=== PATIENT | female | born 1960 | race Hispanic/Latino ===

== ENCOUNTER 2019-08-13 12:00 | Inpatient (IN) | payer OTHER ==
[~2019-08-13] VITALS: Ht 158.8 cm; Wt 78.5 kg
[2019-08-13 12:12] LABS: BASOPHILS % (AUTO) 0.3 % (0.0-5.0); EOSINOPHILS % (AUTO) 3.2 % (0.0-8.0); HEMATOCRIT 41.8 % (36-48); LYMPHOCYTES % (AUTO) 29.9 % (21.0-51.0); MEAN CORPUSCULAR HEMOGLOBIN 28.3 pg (27.0-33.0); MEAN CORPUSCULAR HGB CONC 33.5 g/dL (32.0-36.0); MEAN CORPUSCULAR VOLUME 84.4 fL (79-99); MONOCYTES % (AUTO) 8.3 % (3.0-13.0); NEUTROPHILS % (AUTO) 58.1 % (40.0-77.0); PLATELET COUNT (AUTO) 192 K/uL (130-400); RED BLOOD CELL COUNT(AUTO) 4.95 MIL/uL (4.00-5.50); RED CELL DISTRIBUTION WIDTH 12.4 % (11.0-15.5); WHITE BLOOD COUNT (AUTO) 6.2 K/uL (4.8-10.8)
[2019-08-13 12:22] LABS: INR 0.9 (0.85-1.15); PARTIAL THROMBOPLASTIN TIME 27.4 SEC (26.3-35.5); PROTHROMBIN TIME 9.5 SEC (9.6-11.6)
[2019-08-13 12:25] LABS: ALBUMIN 3.9 g/dL (3.5-5.0); BILIRUBIN,TOTAL 0.3 mg/dL (0.2-1.0); CREATININE 0.7 mg/dL (0.5-1.5); POTASSIUM 4.2 mmol/L (3.5-5.1); TOTAL PROTEIN, SERUM 7.7 g/dL (6.0-8.3)
[2019-08-13 12:31] LABS: HEMOGLOBIN A1C 5.3 % (4.0-6.0)
[2019-08-13 12:41] VITALS: BP 111/61
[2019-08-13] MEDS ORDERED: FLUO10TA3 PO (12:44)
[2019-08-13] MEDS ORDERED: TURM500C9 PO (12:48)
[2019-08-13] MEDS ORDERED: GARL1TAB2 PO (12:48)
[2019-08-13] MEDS ORDERED: VITA1CAP85 PO (12:48)
[2019-08-13] MEDS ORDERED: ASCO500T9 PO (12:48)
[2019-08-13] MEDS ORDERED: CEFUROXIME SODIUM 1.5 GM VIAL IVP SCH (14:00)
[2019-08-14] VITALS (23 sets, daily range): BP systolic 100–137; BP diastolic 41–70
[2019-08-14] MEDS ORDERED: SODIUM CHLORIDE 0.9% 1000ML 1,000 ML IV ONE (11:33)
[2019-08-14] MEDS: CEFUROXIME SODIUM 1.5 GM VIAL ONE ×2 (11:33→15:40)
[2019-08-14] MEDS ORDERED: NEOSTIGMINE 5MG/5ML SYR IV ONE (15:23)
[2019-08-14] MEDS ORDERED: LIDOCAINE PF 2% 5ML ABBOJECT ONE (15:23)
[2019-08-14] MEDS ORDERED: MIDAZOLAM HCL 1 MG/ML 2ML VIAL ONE (15:23)
[2019-08-14] MEDS ORDERED: DEXAMETHASONE SOD PHOSPHATE 10MG/ML 1ML VIAL ONE (15:23)
[2019-08-14] MEDS ORDERED: ONDANSETRON HCL 4 MG/2 ML VIAL ONE (15:23)
[2019-08-14] MEDS ORDERED: FENTANYL CITRATE PF 50 MCG/1 ML 2ML VIAL ONE ×3 (15:23→17:27)
[2019-08-14] MEDS ORDERED: SUCCINYLCHOLINE 200MG/10ML SYR ONE (15:23)
[2019-08-14] MEDS ORDERED: PROPOFOL 10 MG/ML 20ML VIAL IV ONE (15:23)
[2019-08-14] MEDS ORDERED: GLYCOPYRROLATE 1 MG/5 ML SYRINGE ONE (15:23)
[2019-08-14] MEDS ORDERED: ROCURONIUM 10MG/1ML SYR 10 MG/ML ML ONE ×2 (15:24→16:26)
[2019-08-14] MEDS ORDERED: ROPIVACAINE 0.2% 2MG/ML 100ML VIAL IJ ONE (16:01)
[2019-08-14] MEDS ORDERED: ROPIVACAINE 0.5% 5MG/ML 30ML IJ ONE (16:27)
[2019-08-14] MEDS ORDERED: CEFAZOLIN SODIUM 1 GM VIAL ONE (16:45)
[2019-08-14] MEDS ORDERED: TRAMADOL HCL 50 MG TABLET PO PRN (17:00)
[2019-08-14] MEDS ORDERED: MEPERIDINE-PF 25 MG/ML SYG ONE (17:59)
[2019-08-14] MEDS: Q-PUMP 1 EACH IRRIG SCH (19:35)
[2019-08-14] MEDS ORDERED: KETOROLAC TROMETHAMINE 30MG/ML ONE (23:02)
[2019-08-15] MEDS: CEFAZOLIN SODIUM 1 GM VIAL IVP SCH ×3 (01:39→16:44)
[2019-08-15] MEDS: TRAMADOL HCL 50 MG TABLET PO PRN ×3 (01:49→16:44)
[2019-08-15 04:29] LABS: HEMATOCRIT 38.5 % (36-48); MEAN CORPUSCULAR HGB CONC 33.5 g/dL (32.0-36.0); MEAN CORPUSCULAR VOLUME 83.7 fL (79-99); PLATELET COUNT (AUTO) 181 K/uL (130-400); RED CELL DISTRIBUTION WIDTH 12.4 % (11.0-15.5); WHITE BLOOD COUNT (AUTO) 13.3 K/uL (4.8-10.8)
[2019-08-15 04:44] LABS: CREATININE 0.6 mg/dL (0.5-1.5); POTASSIUM 3.7 mmol/L (3.5-5.1)
[2019-08-15] MEDS: KETOROLAC TROMETHAMINE 30MG/ML IV PRN ×3 (05:04→20:07)
[2019-08-15 07:53] VITALS: BP 97/61
[2019-08-15] MEDS: VITAMIN B COMPLEX 1 CAPSULE PO SCH (08:53)
[2019-08-15] MEDS: ASCORBIC ACID 500 MG TAB PO SCH (08:53)
[2019-08-15 12:07] VITALS: BP 119/72
--- NOTE | 2019-08-15 14:26 | NUR ---
DC PLAN VISITED WITH PATIENT. PATIENT LIVES WITH DAUGHTER. INDEPENDENT ABLE TO PERFORM ADL'S. PATIENT HAS NO SERVICES OR DME'S. FEELS SAFE TO RETURN HOME. Addendum: 08/15/19 at 1430 by LAURA GRAFF RN CM Amended: Links added.
[2019-08-15 16:13] VITALS: BP 101/60
[2019-08-15] MEDS: FLUOXETINE HCL 10 MG CAPSULE PO SCH (16:44)
[2019-08-15] MEDS: Q-PUMP 1 EACH IRRIG SCH (17:00)
[2019-08-15 19:25] VITALS: BP 110/65
[2019-08-15 23:44] VITALS: BP 104/66
[2019-08-16] MEDS: TRAMADOL HCL 50 MG TABLET PO PRN ×4 (00:06→21:31)
[2019-08-16] MEDS: CEFAZOLIN SODIUM 1 GM VIAL IVP SCH ×3 (01:34→17:00)
[2019-08-16] MEDS: KETOROLAC TROMETHAMINE 30MG/ML IV PRN ×3 (03:17→15:43)
[2019-08-16 03:57] VITALS: BP 105/53
--- NOTE | 2019-08-16 07:32 | NUR ---
CHEST TUBE DRAINAGE FOR MY SHIFT [id number] TOTAL OF 18ML.
[2019-08-16 07:53] VITALS: BP 100/62
[2019-08-16] MEDS: VITAMIN B COMPLEX 1 CAPSULE PO SCH (09:17)
[2019-08-16] MEDS: ASCORBIC ACID 500 MG TAB PO SCH (09:17)
[2019-08-16 12:01] VITALS: BP 107/68
[2019-08-16 15:49] VITALS: BP 126/74
[2019-08-16] MEDS: Q-PUMP 1 EACH IRRIG SCH (17:00)
[2019-08-16] MEDS: FLUOXETINE HCL 10 MG CAPSULE PO SCH (18:44)
[2019-08-16 19:39] VITALS: BP 124/65
[2019-08-16 23:32] VITALS: BP 119/66
[2019-08-17] MEDS: TRAMADOL HCL 50 MG TABLET PO PRN ×4 (03:41→23:57)
[2019-08-17 04:00] VITALS: BP 118/75
[2019-08-17] MEDS: ACETAMINOPHEN 325 MG TAB PO PRN ×3 (06:15→20:33)
[2019-08-17 07:30] VITALS: BP 113/62
--- NOTE | 2019-08-17 07:45 | NUR ---
AM ASSESSMENT PT LAYING IN BED, HOB ELEVATED 30 DEGREES, RESTING. FAMILY @ BEDSIDE. A/O X 3. NO SOB. NO DISTRESS NOTED. DENIES CHEST PAIN OR DISCOMFORT NOTED. DENIES CHEST PAIN OR DISCOMFORT. DENIES PALPITATIONS. TELE: SR. DENIES N/V AND/OR DIARRHEA. LT LATERAL POSTERIOR INCISION DSG, DRY & INTACT. NO DRAINAGE NOTED. Q PUMP TUBING IN PLACE. Q PUMP @ 10 ML/HR. UP W/ASSISTANCE & USE OF WALKER. INSTRUCTED TO CALL FOR ASSISTANCE. CALL NAMAN W/IN REACH.
[2019-08-17] MEDS: VITAMIN B COMPLEX 1 CAPSULE PO SCH (09:05)
[2019-08-17] MEDS: ASCORBIC ACID 500 MG TAB PO SCH (09:05)
[2019-08-17 11:30] VITALS: BP 113/67
[2019-08-17 15:30] VITALS: BP 119/65
[2019-08-17] MEDS: FLUOXETINE HCL 10 MG CAPSULE PO SCH (16:39)
[2019-08-17 19:34] VITALS: BP 131/60
[2019-08-17] MEDS ORDERED: TRAM50TA4 PO (23:19)
[2019-08-17 23:32] VITALS: BP 106/67
[2019-08-18] MEDS: ACETAMINOPHEN 325 MG TAB PO PRN (04:28)
[2019-08-18 04:36] VITALS: BP 117/71
[2019-08-18] MEDS: TRAMADOL HCL 50 MG TABLET PO PRN ×2 (06:10→11:29)
[2019-08-18 07:30] VITALS: BP 117/67
--- NOTE | 2019-08-18 07:45 | NUR ---
AM ASSESSMENT PT LAYING IN BED, WATCHING TV. FAMILY @ BEDSIDE. A/O X 3. NO SOB. NO DISTRESS NOTED. DENIES CHEST PAIN OR DISCOMFORT. DENIES PALPITATIONS. DENIES INCISIONAL PAIN @ THIS TIME. TELE: SR. LT LATERAL POSTERIOR DSG REMOVED. INCISION WELL APPROX, NO DRAINAGE NOTED. Q PUMP TUBING IN PLACE. DENIES N/V AND/OR DIARRHEA. UP W/ASSISTANCE. INSTRUCTED TO CALL FOR ASSISTANCE. CALL NAMAN W/IN REACH.
[2019-08-18] MEDS: ASCORBIC ACID 500 MG TAB PO SCH (09:00)
[2019-08-18] MEDS: VITAMIN B COMPLEX 1 CAPSULE PO SCH (09:00)
[2019-08-18 11:30] VITALS: BP 139/76
--- NOTE | 2019-08-18 11:30 | NUR ---
DISCHARGE VERBAL & WRITTEN DISCHARGE INSTRUCTIONS REVIEWED & GIVEN TO PT & DAUGHTER. QUESTIONS ENCOURAGED & CLARIFIED. PROPER CARE & ACTIVITY AFTER LT UPPER LOBECTOMY REVIEWED. NEW PRESCRIBED MEDICATION REVIEWED. PRESCRIPTION GIVEN TO PT; SIGNED COPY PLACED IN CHART. Q PUMP DC'D @ THIS TIME. NO RESISTANCE @ WITHDRAWAL. CATHETER TIP INTACT. STERI STRIP APPLIED @ PUNCTURE SITE. CHEST TUBE SUTURE X 1 DC'D @ THIS TIME. STERI STRIPS APPLIED. TELE BETSY REMOVED. PT & DAUGHTER TO GATHER PERSONAL BELONGINGS. WILL NOTIFY STAFF WHEN READY TO BE TAKEN TO PRIVATE VEHICLE.
--- NOTE | 2019-08-18 12:15 | NUR ---
DISCHARGE PT TAKEN TO PRIVATE VEHICLE VIA WC BY Edwina HODGE PCP, ACCOMPANIED BY FAMILY. NO DISTRESS NOTED.
== END 2019-08-18 12:15 | disposition home or self-care (01) | DRG 164 ==
LOC: EDSTATUS 12:00 → DAHIP 08-14 09:20 → 2AH 08-14 19:06
PROVIDERS: ADMIT Thoracic Surgery (Cardiothoracic Vascular Surgery); ATTEND Thoracic Surgery (Cardiothoracic Vascular Surgery)
PROC: 0BTG0ZZ Resection of Left Upper Lung Lobe, Open Approach (ICD-10-PCS; principal; 2019-08-14 15:19)
PROC: 07B70ZZ Excision of Thorax Lymphatic, Open Approach (ICD-10-PCS; 2019-08-14 15:19)
DX: C34.12 Malignant neoplasm of upper lobe, left bronchus or lung (principal); J93.82 Other air leak; R59.1 Generalized enlarged lymph nodes; R05 Cough; E87.70 Fluid overload, unspecified; Z79.899 Other long term (current) drug therapy; Z98.891 History of uterine scar from previous surgery; Z90.710 Acquired absence of both cervix and uterus; Z80.6 Family history of leukemia; Z80.1 Family history of malignant neoplasm of trachea, bronchus and lung; Z98.82 Breast implant status
CPT/HCPCS: 36415; 71045; 71046; 80048; 80053; 83036; 85025; 85027; 85610; 85730; 88305; 88309; 93005; 94010; 97039; A7048; G0378; J0330; J0690; J0697; J1100; J1885; J2001; J2175; J2250; J2405; J2704; J2710; J2795; J3010; J3490; J7030; J7040